=== PATIENT | male | born 1985 | race Caucasian/White ===

== ENCOUNTER 2018-01-28 20:13 | Emergency (ER) | payer SELFPAY ==
[2018-01-28 20:15] VITALS: BP 166/83; PULSE 82; RESP 20; TEMP 36.7; O2SAT 97; BMI 21.2
--- NOTE | 2018-01-28 20:48 | CT_ITS ---
STUDY: CT BRAIN WITHOUT CONTRAST REASON FOR EXAM: Male, 33 years old. Seizures RADIATION DOSAGE (If Supplied By Facility): CTDIvol = ( 44.99 ) mGy, DLP = ( 796.11 ) mGycm TECHNIQUE: Transaxial CT imaging of the brain was performed without administration of intravenous contrast material. Individualized dose optimization techniques were used for this CT. COMPARISON: None. FINDINGS: Normal soft tissue structures. Normal calvarium. Normal size ventricles and extra-axial spaces for the patient's age. Normal white matter tracts of the cerebral hemispheres. Normal basal ganglia and thalami. Normal brainstem. Normal cerebellum. There is no intracranial hemorrhage. There are no findings of an acute ischemic infarction. Normal visualized paranasal sinuses. CT/Brain/Head without Contrast IMPRESSION: Normal unenhanced CT scan of the brain. Electronically Signed: Jonathan Alanis MD at 21:36 EST , Service support ,
[2018-01-28 21:39] LABS: Valproic Acid (Depakene) Level 46 ug/mL (50-100)
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
[2018-01-28] MEDS: Divalproex Sodium 250 MG Tablet 500 MG PO (22:24)
[2018-01-28 22:26] VITALS: BP 131/89; PULSE 78; RESP 16; O2SAT 99
--- NOTE | 2018-01-28 22:27 | ED.RN ---
REVIEWED D/C INSTRUCTIONS, FOLLOW UP CARE, AND S/S THAT WOULD WARRANT A RETURN TO THE ED WITH PT. PT VERBALIZED AN UNDERSTANDING AND DENIES FURTHER QUESTIONS FOR THIS RN. PT SKIN P/W/D, RESP EVEN AND UNLABORED, PT A&O X 3, NO DISTRESS NOTED. PT AMBULATED OUT OF ED, GAIT STEADY.
== END 2018-01-28 22:28 | disposition home or self-care (01) ==
PROVIDERS: Emergency Provider Emergency Medicine
DX: R56.9 Unspecified convulsions (principal); M54.9 Dorsalgia, unspecified
CPT/HCPCS: 70450; 80164; 99283

== ENCOUNTER 2018-03-16 23:48 | Emergency (ER) | payer MEDICAID, SELFPAY ==
[2018-03-16 23:49] VITALS: BP 142/90; PULSE 61; RESP 14; TEMP 37.1; O2SAT 97; BMI 28.0
[2018-03-17] VITALS (13 sets, daily range): BP systolic 112–144; BP diastolic 59–97; PULSE 43–71; RESP 15–20; O2SAT 95–98
--- NOTE | 2018-03-17 00:13 | CT_ITS ---
STUDY: CT BRAIN WITHOUT CONTRAST REASON FOR EXAM: Male, 33 years old. Seizure RADIATION DOSAGE (If Supplied By Facility): CTDIvol = ( 44.99 ) mGy, DLP = ( 796.11 ) mGycm TECHNIQUE: Transaxial CT imaging of the brain was performed without administration of intravenous contrast material. Individualized dose optimization techniques were used for this CT. COMPARISON: None. FINDINGS: Normal soft tissue structures. Normal calvarium. Normal size ventricles and extra-axial spaces for the patient's age. Normal white matter tracts of the cerebral hemispheres. Normal basal ganglia and thalami. Normal brainstem. Normal cerebellum. There is no intracranial hemorrhage. There are no findings of an acute ischemic infarction. Normal visualized paranasal sinuses. CT/Brain/Head without Contrast IMPRESSION: Normal unenhanced CT scan of the brain. Electronically Signed: Binh Colmenares, at 2:42 EST Tel , Service support ,
[2018-03-17 00:32] LABS: Absolute Lymphocyte Count 1.74 X10^3/ul (0.83-4.51); Absolute Neutrophil Count 3.8 X10^3/uL (2.0-7.7); Basophil# 0.02 X10^3/uL; Basophil% 0.3 % (0-1); Eosinophil# 0.06 X10^3/uL; Hematocrit 43.4 % (40-54); Hemoglobin 15.5 g/dl (13.0-16.5); Lymphocyte # 1.74 X10^3/ul (4.0); Lymphocyte % 27.6 % (19-41); Mean Corp Hgb Conc 35.7 g/gl (32-36); Mean Corpuscular Hgb 30.6 pg (27.0-32.0); Mean Corpuscular Volume 85.8 fL (80-94); Mean Platelet Vol. 10.7 fl (6.2-12.0); Monocyte# 0.67 X10^3/uL; Monocyte% 10.6 % (0-10); Neutrophil # 3.79 X10^3/uL (2.7-7.7); Platelet Count 198 K/mm3 (150-450); RBC Distribution Width CV 13.2 % (11.6-14.6); RBC Distribution Width SD 40.3 fl (35.1-43.9); Red Blood Count 5.06 M/mm3 (4.6-6.2); White Blood Count 6.3 K/mm3 (4.4-11.0)
[2018-03-17 00:34] LABS: POSITIVE COUNT NO; POSITIVE DIFFERENTIAL NO; POSITIVE MORPHOLOGY NO
[2018-03-17 00:37] LABS: Alcohol, Blood (Medical)-Serum < 3.0 mg/dL
[2018-03-17 00:41] LABS: ALB/GLOB Ratio 1.4 RATIO (0.9-2.4); AST(SGOT) 29 U/L (15-37); Alanine Aminotransfer ALT/SGPT 46 U/L (16-61); Albumin, Serum 4.1 g/dL (3.2-5.0); Alkaline Phosphatase 53 U/L (45-117); Anion Gap 9 (5-15); BUN 10 mg/dL (7-18); BUN/Creat Ratio 12.8 RATIO (10-20); Calcium,Total 8.5 mg/dL (8.5-10.1); Chloride 106 mmol/L (98-107); Creatinine, Serum 0.78 mg/dL (0.70-1.30); EST Glomerular Filtration Rate 123 mL/min (>60); Est Glom Filt Rate - Afr Amer 148 mL/min (>60); Estimated Creatinine Clearance 158.08 ml/min; Globulin 2.9 g/dL (2.2-4.2); Glucose 88 mg/dL (74-106); Potassium 3.8 mmol/L (3.5-5.1); Sodium Level 142 mmol/L (136-145)
[2018-03-17] MEDS: Ondansetron ODT 4 MG Tablet 8 MG PO (00:57)
--- NOTE | 2018-03-17 01:01 | ED.RN ---
CALLED CRISIS TO MAKE THEM AWARE OFTHIS PT WILL NEED TO BE SEEN, SPOKE TO RONDA
[2018-03-17 01:20] LABS: Amphetamine Urine VISTA NEGATIVE (<1000 ng/mL); Barbiturate Urine VISTA NEGATIVE (< 200 ng/mL); Benzodiazepine Urine VISTA NEGATIVE (< 200 ng/mL); Cocaine Urine VISTA NEGATIVE (< 300 ng/mL); Ecstacy Urine VISTA NEGATIVE (< 500 ng/mL); Methadone Urine VISTA NEGATIVE (< 300 ng/mL); PCP Urine VISTA NEGATIVE (< 25 ng/mL); THC Urine VISTA NEGATIVE (< 50 ng/mL); Vista UDS pH Range 6
--- NOTE | 2018-03-17 01:22 | ED.RN ---
PT PACKET GIVEN TO CRISIS
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
[2018-03-17] MEDS: Divalproex Sodium 250 MG Tablet 1000 MG PO (01:41)
--- NOTE | 2018-03-17 03:42 | EKG12_ITS ---
Test Reason : [facility] Blood Pressure : / mmHG Vent. Rate : 056 BPM Atrial Rate : 056 BPM P-R Int : 188 ms QRS Dur : 106 ms QT Int : 396 ms P-R-T Axes : 029 055 031 degrees QTc Int : 382 ms Poor data quality, interpretation may be adversely affected Sinus bradycardia Otherwise normal ECG Confirmed by CAYDEN MCCLURE, KRISTINE ([id number]), communications editor EILEEN CROW ([id number]) on 03/19/2018 9:11:36 AM Referred By: KYLEE Confirmed By:KRISTINE RODARTE MD
[2018-03-17 03:49] LABS: Bacteria 0 SEEN /hpf (None Seen); Mucous, Urine 0 SEEN /hpf (<or=2+); Red Blood Cells-Urine 0 SEEN /hpf (0-5); White Blood Cells 0 SEEN /hpf (0-5)
[2018-03-17 03:51] LABS: Color, Urine Yellow (Yellow); Glucose, Dipstick Normal (Normal); Ketone-Dipstick Negative (Negative); Leukocyte Esterase-Dipstick Negative /ul (Negative); Nitrite-Dipstick Negative (Negative); Occult Blood-Urine Negative /ul (Negative); Protein-Dipstick Negative (Negative); Specific Gravity, Urine 1.015 (1.002-1.030); Urine Bilirubin Dipstick Negative (Negative); Urine Clarity Clear (Clear); Urine Urobilinogen 1 mg/dl (Normal)
--- NOTE | 2018-03-17 03:55 | ED.RN ---
NO OLD EKGS IN MUSE
[2018-03-17 04:03] LABS: AST(SGOT) 31 U/L (15-37); Alanine Aminotransfer ALT/SGPT 45 U/L (16-61); Albumin, Serum 4.1 g/dL (3.2-5.0); Alkaline Phosphatase 52 U/L (45-117); Bilirubin, Direct 0.12 mg/dL (0.00-0.30); Globulin 2.8 g/dL (2.2-4.2); Protein, Total 6.9 g/dL (6.4-8.2)
[2018-03-17 04:26] LABS: Squamous Epithelial Cells - UA 0-5 SEEN /hpf (0-5)
[2018-03-17] MEDS: hydrOXYzine PAM 25 MG Capsule 50 MG PO (04:38)
--- NOTE | 2018-03-17 07:19 | NURSING ---
PER RONDA, CRISIS, NO BED AT [facility] YET
[2018-03-17] MEDS: Gabapentin 800 MG Tablet PO (13:52)
--- NOTE | 2018-03-17 14:41 | NURSING ---
ACCEPTED AT [facility]
--- NOTE | 2018-03-17 15:11 | NURSING ---
CALLED [facility]. ETA IS 30 TO 45 MIN
== END 2018-03-17 16:22 ==
PROVIDERS: Emergency Provider Emergency Medicine
DX: R45.851 Suicidal ideations (principal); G40.909 Epilepsy, unspecified, not intractable, without status epilepticus; F31.9 Bipolar disorder, unspecified; R11.2 Nausea with vomiting, unspecified; R19.7 Diarrhea, unspecified; Z91.14 Patient's other noncompliance with medication regimen; Z91.013 Allergy to seafood
CPT/HCPCS: 70450; 80053; 80076; 80307; 80320; 81001; 85025; 93005; 99285; J7030; G0480; J2405

== ENCOUNTER 2018-03-30 18:39 | Emergency (ER) | payer MEDICAID, SELFPAY ==
[2018-03-30 18:40] VITALS: BP 152/87; PULSE 81; RESP 12; TEMP 37.1; O2SAT 95; BMI 29.7
--- NOTE | 2018-03-30 18:51 | EKG12_ITS ---
Test Reason : [facility] Blood Pressure : / mmHG Vent. Rate : 074 BPM Atrial Rate : 074 BPM P-R Int : 168 ms QRS Dur : 102 ms QT Int : 360 ms P-R-T Axes : 050 047 040 degrees QTc Int : 399 ms Normal sinus rhythm Normal ECG Confirmed by KRISTINE RODARTE MD ([id number]), restaurant expeditor DENISE DODD ([id number] on 04/01/2018 8:53:06 AM Referred By: Confirmed By:KRISTINE RODARTE MD
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
--- NOTE | 2018-03-30 19:00 | RAD_ITS ---
STUDY: X-RAY CHEST REASON FOR EXAM: Male, 33 years old. Cough, SOB. TECHNIQUE: PA and lateral chest. COMPARISON: None. FINDINGS: The lungs are clear and expanded. There is no demonstrated pleural abnormality. Normal size heart. Normal mediastinum and roni. Normal visualized pulmonary arteries. Normal visualized aortic arch and descending thoracic aorta. Normal visualized thoracic spine. Normal visualized ribs, clavicles, and shoulders. There is no demonstrated abnormality of the visualized soft tissue structures of the upper abdomen. RAD/Chest PA and Lateral IMPRESSION: Normal x-ray examination of the chest. Electronically Signed: Darlin Rachel MD at 19:47 EST Tel , Service support ,
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
--- NOTE | 2018-03-30 19:14 | ED.DEP ---
ED Disposition - Plan for ED Patient: Disposition: Home or Assisted Living Chief Complaint: Chest Pain Instructions: ED Strain Chest Wall Referrals: Rivera Madera MD [NON-STAFF] - As Needed Additional Instructions: Your chest x-ray and EKG were both normal. Motrin for pain that is associated with inflammation of your chest wall. Follow-up with not improving.
[2018-03-30 19:37] VITALS: BP 142/81; PULSE 75; RESP 24; O2SAT 96
[2018-03-30] MEDS: Ibuprofen 600 MG Tablet PO (19:50)
--- OUTSIDE RECORDS SUMMARY | 2018-06-03 10:44 | XMS RPT_ITS ---
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 -[phone] () [place] [address] 01/28/2018 MARC [id number] Primary NOT GIVENUNK Rodolfo SRIVASTAVA Insurance:SELF PAY [facility] [id number]: ([phone]) Number: Effective Repository [phone] () Date:2018-01-28
== END 2018-03-30 20:01 | disposition home or self-care (01) ==
PROVIDERS: Emergency Provider Emergency Medicine
DX: R07.89 Other chest pain (principal); R05 Cough; G40.909 Epilepsy, unspecified, not intractable, without status epilepticus; F43.10 Post-traumatic stress disorder, unspecified; F31.9 Bipolar disorder, unspecified
CPT/HCPCS: 71046; 93005; 99284; J7030

== ENCOUNTER 2018-04-03 19:25 | Emergency (ER) | payer MEDICAID, SELFPAY ==
[2018-04-03 19:26] VITALS: BP 135/80; PULSE 104; RESP 18; TEMP 37; O2SAT 96; BMI 27.2
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
[2018-04-03] MEDS: Naproxen 500 MG Tablet PO (20:01)
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
[2018-04-03 21:54] VITALS: PULSE 110; RESP 16; O2SAT 99
--- NOTE | 2018-04-03 22:10 | CM.ED ---
SOCIAL WORK NOTE MET WITH PT AND UPDATED NURSING ON BED AVAILABILITY AT THE [facility] IN [place]. PT REPORTS SPOKE WITH HIS MOTHER AND REQUESTS THIS WORKER CALL MOTHER TO DISCUSS PLAN. CALL TO PT'S MOTHER UMA. PER UMA, WILL ATTEMPT TO FIND A PLACE FOR PT TO STAY. UMA REPORTS DOES NOT HAVE TRANSPORTATION FOR PT TO THE [facility] IN [place]. UMA REQUESTING THIS WORKER CALL BACK IN 10 MINUTES.
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
--- NOTE | 2018-04-03 23:43 | CM.ED ---
SOCIAL WORK NOTE CALL TO [facility], SPOKE WITH FENG. FENG INFORMED THIS WORKER BED REMAINS AVAILABLE FOR PT AND INTERMEDIATE IS OPEN 24 HOURS. INFORMED FENG THIS WORKER IS STILL WORKING ON TRANSPORTATION FOR PT. DISCUSSED WITH NURSING. GLOBAL PROGRAM DIRECTOR GAVE OK FOR A ONE TIME TAXI VOUCHER FOR PT TO THE [facility]. UPDATED PT THAT THE HOSPITAL WILL NOT BE ABLE TO PROVIDE ANY FURTHER TRANSPORTATION. PT VERBALIZED UNDERSTANDING. [facility] CONTACTED AT THIS TIME.
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
--- NOTE | 2018-04-04 00:15 | CM.ED ---
SOCIAL WORK NOTE THIS WORKER AND OFFICER, KAILA WORKING ON TRANSPORT. CALL TO THE [facility], SPOKE WITH [facility]. INQUIRED IF PT ABLE TO STAY FOR 1 NIGHT UNTIL OTHER TRANSPORT AND SENIOR CARE ARRANGED. UPDATED PT DOES HAVE BED AT [facility], HOWEVER, TRANSPORTATION IS AN ISSUE. [facility] STATES PT IS ON THE DO NOT ADMIT LIST, UNABLE TO PROVIDE SENIOR CARE FOR PT. UPDATED NURSING. DISCUSSED OPTIONS WITH PT. PT WAS GIVEN THE OPTION TO RETURN TO COUSIN'S HOME. THIS WORKER CALLED PT'S COUSIN, CLOTILDE [phone]. CLOTILDE STATES PT ABLE TO STAY WITH HER. DISCUSSED FAMILY OR FRIEND TAKING PT TO [facility] TOMORROW. CLOTILDE STATES NO TRANSPORT FOR PT. OFFICER, KAILA TO TRANSPORT PT TO COUSIN'S HOME.
== END 2018-04-03 21:56 | disposition home or self-care (01) ==
PROVIDERS: Emergency Provider Emergency Medicine
DX: R68.84 Jaw pain (principal); Y04.2XXA Assault by strike against or bumped into by another person, initial encounter; Y92.9 Unspecified place or not applicable; Y99.9 Unspecified external cause status; K21.9 Gastro-esophageal reflux disease without esophagitis; E11.9 Type 2 diabetes mellitus without complications; Z72.0 Tobacco use
CPT/HCPCS: 70450; 70486; 99284